=== PATIENT | female | born 1990 | race Two or more races ===

== ENCOUNTER 2025-02-20 19:30 | Inpatient (IN) | payer OTHER ==
[~2025-02-20] VITALS: Ht 167.6 cm; Wt 62.6 kg
[~2025-02-20 19:30] MED LIST: MEDROLPACK PO
[2025-02-20] MEDS ORDERED: RINGERS SOLUTION,LACTATED 1,000 ML IV SCH (20:15)
[2025-02-20 20:21] LABS: BASO % 0.5 % (0.1-1.2); EOS # 0.07 (0.04-0.54); EOS % 0.7 % (0.7-7.0); LYMPH # 1.51 (1.18-3.74); LYMPH % 14.5 % (19.3-53.1); MEAN PLATELET VOLUME 10.90 fl (9.4-12.4); MONO # 0.91 (0.24-0.82); MONO % 8.7 % (4.7-12.5); NEUT # 7.79 (1.56-6.13); NEUT % 74.7 % (34.0-71.1); RED CELL DISTRIBUTION WIDTH 14.9 % (11.6-14.4)
[2025-02-20 20:24] LABS: URINE APPEARANCE Clear; URINE BILIRRUBIN Negative (NEGATIVE); URINE BLOOD Small; URINE COLOR Yellow; URINE GLUCOSE Negative (NEGATIVE); URINE KETONE Negative (NEGATIVE); URINE LEUKOCYTE Large; URINE NITRATE Negative; URINE PROTEIN Negative (NEGATIVE); URINE UROBILINOGEN 1.0 E.U./dl
[2025-02-20 20:25] LABS: URINE BACTERIA 1722.7 uL (0.0-1933); URINE EPITHELIAL CELLS 30.3 uL (0.0-38.8); URINE RBC 2.9 uL (0.0-20.8); URINE WBC 158.6 uL (0.0-23.2)
[2025-02-20 20:32] VITALS: BP 116/77
[2025-02-20 20:35] LABS: URINE CAST 0.14 uL (0.0-1.40)
[2025-02-20 20:51] LABS: INR < 0.93
[2025-02-20 20:55] LABS: ALT/SGPT 16.0 U/L (12-78); AST/SGOT 15.0 U/L (15-37); BILIRUBIN TOTAL 0.29 mg/dL (0.3-1.2); BUN CREA RATIO 14.0 (7.0-25.0); CREATININE SERUM 0.69 mg/dL (0.55-1.02); GFR 97.98; GLOBULINA 3.7 G/DL (2.4-3.5); GLUCOSE FASTING 73.0 mg/dL (65-100); OSMOLALITY SERUM 279.0 MOSM/KG (275-295)
[2025-02-20] MEDS ORDERED: ERYTHROMYCIN BASE OPHT 1GM EACH TUBE OP ONE (21:01)
[2025-02-20] MEDS ORDERED: OXYTOCIN 20 UNITS/1000ML RL PIGGYBAG IV ONE (21:01)
[2025-02-20] MEDS ORDERED: CHLORHEXIDINE GLUCONATE 120 ML BOTTLE TOP ONE (21:01)
[2025-02-20] MEDS ORDERED: LIDOCAINE HCL 1% 10ML VIAL ONE (21:02)
[2025-02-20] MEDS ORDERED: PRENATA CHEWAB1 EACH PO (21:40)
[2025-02-20] MEDS ORDERED: CHLORHEXIDINE GLUCONATE 120 ML BOTTLE TP SCH (22:00)
[2025-02-20] MEDS ORDERED: ACETAMINOPHEN 500 MG GEL..CAP PO PRN (22:00)
[2025-02-20] MEDS ORDERED: OXYTOCIN 1,000 ML IV SCH (22:00)
[2025-02-20] MEDS ORDERED: BENZOCAINE/MENTHOL 90 ML BOTTLE TOP SCH (22:00)
[2025-02-20 23:25] VITALS: BP 115/51
[2025-02-21 05:51] VITALS: BP 109/68
[2025-02-21 08:06] VITALS: BP 103/64
[2025-02-21] MEDS ORDERED: DOCUSATE SODIUM 100MG CAP PO SCH (09:00)
[2025-02-21 16:11] VITALS: BP 120/74
[2025-02-22] VITALS: BP 106/66
[2025-02-22 08:51] VITALS: BP 106/68
[2025-02-22] MEDS ORDERED: NAPR500T14 PO (09:03)
[2025-02-22 17:09] VITALS: BP 110/73
== END 2025-02-22 17:21 | disposition home or self-care (01) | DRG 807 ==
LOC: OB/GYN 19:30 → LDR 19:30 → OB/GYN 21:56
PROVIDERS: ADMIT Obstetrics & Gynecology; ATTEND Obstetrics & Gynecology
PROC: 10E0XZZ Delivery of Products of Conception, External Approach (ICD-10-PCS; principal; 2025-02-20)
PROC: 0KQM0ZZ Repair Perineum Muscle, Open Approach (ICD-10-PCS; 2025-02-20)
PROC: 4A1HXCZ Monitoring of Products of Conception, Cardiac Rate, External Approach (ICD-10-PCS; 2025-02-20)
DX: O70.1 Second degree perineal laceration during delivery (principal); Z37.0 Single live birth; Z3A.37 37 weeks gestation of pregnancy